=== PATIENT | male | born 1990 | race Two or more races ===

== ENCOUNTER 2023-10-22 08:36 | Emergency (ER) | payer OTHER ==
[~2023-10-22] VITALS: Ht 170.2 cm; Wt 81.6 kg
[~2023-10-22 08:36] MED LIST: AUGMENTIN1 TAB.SR2 PO; BUCALSEP SPRAY30 ML MM
[2023-10-22] MEDS ORDERED: DICLOFENAC POTA50 MG PO (10:34)
[2023-10-22] MEDS ORDERED: NORFLEX100MG PO (10:34)
== END 2023-10-22 10:59 | disposition home or self-care (01) ==
LOC: ER 08:37
DX: M54.30 Sciatica, unspecified side (principal); Z88.8 Allergy status to other drugs, medicaments and biological substances